=== PATIENT | female | born 1955 | race Caucasian/White ===

== ENCOUNTER → 2016-09-26 | Outpatient (CLI) | payer OTHER ==
--- NOTE | 2016-09-26 14:03 | KCIC ---
PROCEDURE Bone density. HISTORY Postmenopausal, osteoporosis, screening. COMPARISON None. FINDINGS Dual photon densitometry of the lumbar spine and left proximal femur is performed. Bone mineral density values are measured in grams per cm2. Lumbar spine, L1-L4, total bone mineral density 1.031, T-score -0.1, Z-score 1.3. Left total femur bone mineral density 0.761, T-score -1.5, Z-score -0.5. World Health Organization criteria for bone mineral density interpretation classify patient's as normal (T-score at or above -1.0), osteopenic (T-score between -1 and -2.5), or osteoporotic (T-score at or below -2.5). IMPRESSION Normal bone mineral density of the lumbar spine and osteopenia of the left femur. Electronically signed by: Willam Garcia MD (September 26, 2016 14:01:46)
--- NOTE | 2016-09-26 14:37 | KCIC ---
PROCEDURE Coronary artery calcium score HISTORY Calcium screening. Family history of CAD. Tobacco use. TECHNIQUE Computed tomography of the heart was performed with ECG gating, suspended respiration and without the administration of contrast material. Post processing was performed on the 3-D computer workstation using diastolic phase images to measure the amount of coronary vascular calcium. Scoring was acquired using the Agatston Method. PQRS: One or more the following individualized dose reduction techniques were utilized for the study: 1. Automated exposure control. 2. Adjustment of the mA and/or kV according to patient size. 3. Use of iterative reconstruction technique. COMPARISON None. FINDINGS Thorax: Cardiac size is normal, no pericardial effusion. Visualized great vessels normal caliber. No pleural effusion. There is mild centrilobular emphysema in the lower lungs. There is a calcified granuloma in the right middle lobe. There is minimal dependent atelectasis or scarring in the lower lobes bilaterally. There is a subpleural density laterally in the left lower lobe that may be due to scarring, image 37. Note that this CT exam is limited to the heart and adjacent structures. Coronary arteries: CALCIUM IS NOT PRESENT. TOTAL AGATSTON CALCIUM SCORE EQUALS 0. No calcification is seen in the left main, LAD, RCA, or circumflex artery. This does not absolutely rule out the presence of atherosclerotic plaque, including unstable plaque, but does imply a very low likelihood of significant luminal narrowing or obstruction. A negative test may be consistent with a low risk of cardiovascular event in the next 2 to 5 years. IMPRESSION No coronary artery calcium identified. RECOMMENDATIONS Healthy lifestyle choices including cessation of smoking and eating appropriately and exercise are encouraged. Additional supporting information concerning the findings and recommendation contained within this report can be found in the consensus statements on coronary vascular calcium published by the [place] [employer] and [employer] [employer] 5 Conference (Circulation 1996; 94: 3003-7328; J Am Vidya Cardiol 2000; 36: 326-340 and Circulation 2000; 101: 111-116). Electronically signed by: Willam Garcia MD (September 26, 2016 14:36:04)
== END | disposition home or self-care (01) ==
LOC: KCIC MAMMO 12:39
PROVIDERS: ATTEND Family Medicine
DX: Z13.820 Encounter for screening for osteoporosis (principal); Z13.6 Encounter for screening for cardiovascular disorders; Z78.0 Asymptomatic menopausal state; M85.88 Other specified disorders of bone density and structure, other site
CPT/HCPCS: 75571; 77080

== ENCOUNTER → 2016-11-28 | Outpatient (CLI) | payer OTHER ==
--- NOTE | 2016-11-28 12:08 | RAD ---
DATE: 11/28/2016 EXAM: DIGITAL SCREEN BILAT W/CAD HISTORY: Screening COMPARISON: None This study was interpreted with the benefit of Computerized Aided Detection (CAD). FINDINGS: Breast Density: FATTY The Breast Parenchyma is primarily fatty replaced. Breast parenchyma level density A.. No dominant mass or suspect group of calcifications are seen. There is a well-defined small mass in the upper outer aspect of the right breast compatible with an intramammary lymph node. IMPRESSION: Benign findings BI-RADS CATEGORY: 2 BENIGN FINDING(S) RECOMMENDED FOLLOW-UP: 12M 12 MONTH FOLLOW-UP PQRS compliance statement: Patient information was entered into a reminder system with a target due date 11/28/2017 for the next mammogram. Mammography is a sensitive method for finding small breast cancers, but it does not detect them all and is not a substitute for careful clinical examination. A negative mammogram does not negate a clinically suspicious finding and should not result in delay in biopsying a clinically suspicious abnormality. "Our facility is accredited by the [employer] Mammography [employer]."
== END | disposition home or self-care (01) ==
LOC: MAMMO 08:32
PROVIDERS: ATTEND Family Medicine
DX: Z12.31 Encounter for screening mammogram for malignant neoplasm of breast (principal)
CPT/HCPCS: G0202; 77067